=== PATIENT | female | born 1990 | race African-American/Black ===

== ENCOUNTER 2017-11-12 10:48 | Emergency (ER) | payer OTHER ==
[~2017-11-12] VITALS: Ht 165.1 cm; Wt 79.8 kg
[2017-11-12] MEDS ORDERED: VENTOLIN HFA 1818 GM INH (11:13)
[2017-11-12 11:23] LABS: URINE BILIRUBIN NEGATIVE (Negative); URINE BLOOD NEGATIVE (Negative); URINE CLARITY CLEAR; URINE COLOR YELLOW; URINE GLUCOSE-RANDOM NEGATIVE (Negative); URINE KETONES NEGATIVE (Negative); URINE LEUKOCYTES-REFLEX NEGATIVE (Negative); URINE NITRITE-REFLEX NEGATIVE (Negative); URINE PROTEIN NEGATIVE (Negative); URINE SPECIFIC GRAVITY 1.015 (1.005-1.030); URINE UROBILINOGEN 0.2 E.U./dl (0.2-1.0)
[2017-11-12] MEDS ORDERED: ZOFRAN4 MG PO (13:07)
[2017-11-12] MEDS ORDERED: PERCOCET 5-3251 EACH PO (13:07)
[2017-11-12] MEDS ORDERED: TORADOL 10 MG T10 MG PO (13:07)
[2017-11-12 13:16] VITALS: BP 132/62
== END 2017-11-12 13:19 | disposition home or self-care (01) ==
LOC: M.ERS 10:48
PROVIDERS: Nurse Practitioner Family
DX: M54.41 Lumbago with sciatica, right side (principal); M25.561 Pain in right knee; J45.909 Unspecified asthma, uncomplicated; F17.200 Nicotine dependence, unspecified, uncomplicated; Z88.1 Allergy status to other antibiotic agents; Z88.6 Allergy status to analgesic agent